=== PATIENT | male | born 1960 ===

== ENCOUNTER 2018-06-16 18:09 | Emergency (ER) | payer BC, OTHER ==
[2018-06-16 18:46] VITALS: TEMP 96.3
[2018-06-16 18:48] VITALS: BP 153/95; PULSE 68; RESP 16; O2SAT 98
== END 2018-06-16 19:08 | disposition home or self-care (01) ==
LOC: ED 18:09
DX: H93.13 Tinnitus, bilateral (principal)
CPT/HCPCS: 99282